=== PATIENT | female | born 1945 | race Caucasian/White ===

== ENCOUNTER 2017-04-08 19:54 | Emergency (ER) | payer OTHER ==
[~2017-04-08 19:54] MED LIST: ASPIRIN; ASPIRIN ADULT L81 M1 PO; BUTALBITAL; CAFFEINE; CITALOPRAM HYDR20 MG PO; COLACE100 MG; CRANBERRY500 MG PO; CRESTOR20 MG PO; CYCLOBENZAPRINE10 MG PO; CYMBALTA30 MG PO; DICYCLOMINE HCL10 MG PO; FLONASE AL50 MCG/ACT; HYZAAR1 TA1 PO; IBUPROFEN600 MG PO; IBUPROFEN800 MG PO; LEVOTHYROXINE25 MCG PO; LOPRESSOR50 MG PO; MAG6464 MG PO; NAPROSYN375 MG PO; NASAL DECONGES0.05 %; NYSTATIN100000 M2 TOP; OXYCONTIN CR15 MG PO; PROTONIX40 MG PO; RANITIDINE HCL150 MG PO; RESTORIL15 MG PO; TRAZODONE HCL50 MG PO; VENTOLIN HFA IN; ZANTAC 150 MAX150 MG PO; ZOFRAN ODT4 MG PO
--- NOTE | 2017-04-08 20:36 | DIAGNOSTIC IMAGING REPORT ---
PROCEDURE: XR CHEST 1 VIEW INDICATION: SHORTNESS OF BREATH TECHNIQUE: Portable AP view 08:19 p.m. COMPARISON: Chest x-ray 01/10/2016. FINDINGS: Lungs are clear. Heart and mediastinum are normal. Thorax is normal. No significant interval change IMPRESSION: 1. Negative chest.
--- NOTE | 2017-04-08 22:57 | ED NURSING NOTES ---
Clinical Report - Nurses [facility] [address] [place] [address] 04/08/2017 19:54 Patient: RADHA FERNANDEZ TRIAGE Triage time 19:52. Acuity: LEVEL 2. Chief Complaint: CHEST DISCOMFORT and SHORTNESS OF BREATH. Alert. No acute distress. SEPSIS SCREEN: Sepsis Screen. Negative (no infection suspected/documented). GATO COMA SCORE: Gato Coma Scale: 15- eyes open spontaneously (4); best verbal response- oriented x 4 (5); best motor response- obeys commands (6). --20:01 Maddi Santos R.N. 19:54 04/08/17. BP: 132/77. HR: 69. RR: 15. O2 saturation: 96%. Temp: 98.4 F. Pain level now 0/10. --20:01 Maddi Santos R.N. Weight: 100.2 kg stated. Height/Length: 63 inches Per Patient. BMI: 39.1. --19:57 Maddi Santos R.N. Medications Aspirin Oral (Tablet Chewable 81 mg) 1 tablet, daily. Cyclobenzaprine HCl Oral (Tablet 5 mg) 1 tablet, 3x a day. --20:03 Maddi Santos R.N. Cranberry Oral. --20:03 Maddi Santos R.N. Dicyclomine HCl Oral (Capsule 10 mg) 2 capsules, 2x a day. --20:04 Maddi Santos R.N. DULoxetine HCl Oral (Capsule Delayed Release Particles 30 mg) 3 capsules, daily. --20:04 Maddi Santos R.N. Flonase Nasal (Suspension 50 mcg/act), 2x a day. --20:04 Maddi Santos R.N. Hyzaar Oral (Tablet 50-12.5 mg) 1 tablet, daily. --20:05 Maddi Santos R.N. Ibuprofen Oral (Tablet 800 mg) 1 tablet, 3x a day. --20:05 Maddi Santos R.N. Ketoconazole External (Cream 2 %), daily. --20:06 Maddi Santos R.N. Levothyroxine Sodium Oral (Tablet 25 mcg) 1 tablet, daily. --20:06 Maddi Santos R.N. Lidocaine External 3% lotion. --20:06 Maddi Santos R.N. Loratadine Oral (Tablet 10 mg), daily. --20:07 Maddi Santos R.N. Magnesium Chloride Oral 64mg, daily. --20:07 Maddi Santos R.N. Metoprolol Tartrate Oral (Tablet 50 mg) 1 tablet (1.5 tablets q morning and 1 tablet q PM). --20:08 Maddi Santos R.N. Nitroglycerin Sublingual (Tablet Sublingual 0.4 mg), as needed. --20:08 Maddi Santos R.N. Nystatin External (Cream 943500 unit/gm). --20:08 Maddi Santos R.N. OxyCONTIN Oral (Tablet ER 12 Hour Abuse-Deterrent 15 mg), 2x a day as needed. --20:09 Maddi Santos R.N. Polyethylene Glycol 3350 Oral, BID. --20:09 Maddi Santos R.N. TraZODone HCl Oral (Tablet 50 mg) 2 tablets, at bedtime. --20:10 Maddi Santos R.N. Ventolin HFA Inhalation 2 puffs, 4x a day as needed. --20:10 Maddi Santos R.N. Allergies Codeine. Septra. --20:11 Maddi Santos R.N. History Arrived by EMS. Historian: patient. Primary physician (charissa). ( Pt presented to urgent care for shortness of breath x2 weeks and chest heaviness also for 2 weeks. she states the chest heaviness comes and goes and she also has some diaphoresis. Pt states this frequently happens to her, and she has to take PO nitro about twice per month for chest heaviness. She also c/o palpitations this morning. Pt was transported via EMS and given 1 asa and nitro x3 and is 0/10 pain upon arrival to ED.). Onset. (this morning). The patient has had difficulty breathing. Treatment HAND BUTTON SPLITTER: Took aspirin and NTG x3 sublingually. EMS treatment HAND BUTTON SPLITTER verbally communicated. Finger stick glucose performed (143). ASA 325 mg PO given by EMS. NITROGLYCERIN X3 SL given by EMS. BP: 135/80. HR: 76. O2 saturation: 95 % room air. Upon arrival patient awake. SOCIAL HX: Never smoker. No alcohol use or drug use. FALL RISK ASSESSMENT: Fall risk assessment completed. No fall risk identified. NUTRITIONAL RISK ASSESSMENT: The nutritional risk assessment revealed no deficiencies. FUNCTIONAL ASSESSMENT: Functional assessment: no impairments noted. LEARNING NEEDS ASSESSMENT: The learning needs assessment revealed no barriers. SKIN INTEGRITY ASSESSMENT: Skin integrity risk assessment completed. No skin integrity risk identified. --20:01 Maddi Santos R.N. ( asa from EMS at 1920). --20:12 Maddi Santos R.N. PROBLEMS: Myocardial Infarction. Acute Pain. GI Bleeding. Immunizations. UTI - Urinary Tract Infection. Back Pain. Fibromyalgia. Spinal Stenosis. Abnormal Liver Function Test. Viral Disease. Thrombocytopenia. TIA - Transient Ischemic Attack. Insomnia. Arthritis. Gastroesophageal Reflux. Thyroid Disease. Hyperlipidemia. Chronic Back Pain. Atrial Fibrillation. Chest Pain. Hypertension. Prior Injury, Same Area. Contusion. Heart Disease. Tetanus Status. LNMP - Last Normal Menstrual Period. --20:11 Maddi Santos R.N. Interventions ID band on patient. To treatment room. --20:01 Maddi Santos R.N. 19:50 04/08/2017 Site #1 started prior to arrival by EMS via IV in the left forearm with an 20g angiocath, with aseptic technique and good blood return; one attempt. Saline lock flushed with 10 mL saline. --20:01 Maddi Santos R.N. PHYSICAL ASSESSMENT 20:02 04/08/17. To room via stretcher. GENERAL / NEURO / PSYCH: Alert. Oriented X 4. RESPIRATORY: No respiratory distress. Respirations not labored. CVS: Capillary refill less than 2 seconds. GI / : Abdomen soft. EXTREMITIES: No lower extremity edema. SKIN: Skin is warm and dry. --20:02 Maddi Santos R.N. NURSING PROGRESS NOTES 20:02 04/08/17. The plan of care for this patient has been created. bus driver/monitor, pulse oximeter and NIBP monitor placed on patient. Patient gowned. Head of bed elevated. Call light placed in reach. Side rails up x 2. Bed placed in lowest position. Brakes of bed on. Patient ready for evaluation- chart flagged. --20:02 Maddi Santos R.N. EKG time: (1952). EKG was ordered, performed by a tech and shown to the ED physician. --20:14 Román Dye, ER [employer] Patient ID band checked for patient name and birthdate: patient confirmed. Blood samples drawn from the right forearm with syringe and 21g butterfly by tech per protocol: rainbow set. --20:53 Román Dye, ER [employer] Assisted patient to bedside commode; tolerated well. --21:10 Maddi Santos R.N. Patient ID band checked for patient name and birthdate: patient confirmed. Instructions provided to collect clean catch urine and patient verbalized understanding. Clean catch urine collected with return of yellow-colored clear urine; odor is normal; sample sent to lab for urinalysis and culture. Specimen labeled in the presence of the patient. --21:17 Maddi Santos R.N. 21:17 04/08/17. BP: 139/90. HR: 67. RR: 18. O2 saturation: 96% on room air. Pain level now 0/10. --21:17 Maddi Santos R.N. 22:55 04/08/2017 Heparin IVP 4000 unit given over 1 minute(s) via site #1. Allergies verified and confirmed 5 rights. IV patency established. IV site checked: no pain, redness, or swelling. IV flushed thoroughly pre- and post-medication administration. IVP given by RN. --23:05 Jeaneth Multani R.N. 23:01 04/08/2017 Morphine IVP 4 mg given over 2 minute(s) via site #1. Allergies verified, confirmed 5 rights and sedative warning given to the patient. IV patency established. IV site checked: no pain, redness, or swelling. IV flushed thoroughly pre- and post-medication administration. IVP given by RN. --23:06 Cecilia Barrios R.N. 22:30 04/08/17. BP: 115/75 taken on the left arm, while lying. HR: 61 (regular). RR: 18. O2 saturation: 96%. Temp: deferred. Pain level now: 10/06. --23:08 Jeaneth Multani R.N. The patient reports no complaints and she is calm and resting quietly. RESPIRATORY: No respiratory distress. Breath sounds normal. SKIN: Skin is warm and dry. Skin color within normal limits. Two patient identifiers checked. Call light placed in reach. Side rails up x 2. Bed placed in lowest position. Brakes of bed on. --23:08 Jeaneth Multani R.N. Care transferred and report received (received report from DR. Prado, Assumed care of pt,). --23:08 Jeaneth Multani R.N. 23:22 04/08/2017 Atorvastatin PO Tablets 10 mg given. Allergies verified and confirmed 5 rights. --23:29 Jeaneth Multani R.N. The patient reports no complaints. ( pt up to BSC c/o slight CP on transfer back to bed. no rhythm changes.). RESPIRATORY: No respiratory distress. Breath sounds normal. CVS: The patient reports central chest pain is still present but improving and currently mild in severity and described as stabbing. SKIN: Skin is warm and dry. Skin color within normal limits. Two patient identifiers checked. Call light placed in reach. Side rails up x 1. Bed placed in lowest position. Brakes of bed on. --23:31 Jeaneth Multani R.N. 23:00 04/08/17. BP: 160/73 taken on the right arm, while lying. HR: 66 (regular and normal rate). RR: 20 (regular and unlabored). O2 saturation: 97% on room air. Temp: deferred. Pain level now: 12/04. --23:31 Jeaneth Multani R.N. DISPOSITION / DISCHARGE 00:07 04/09/17. BP: 137/90. HR: 84 (regular and normal rate). RR: 18. O2 saturation: 97%. Temp: deferred. Pain level now: 11/06. --00:13 Jeaneth Multani R.N. Departure time: 0010. Transferred to [facility]. Summary of care provided to EMS via paper. Transported via ambulance by nurse and EMS with monitor, IV and emergency medications. Report was given to a nurse via a phone call. Report included patient's care, treatment, medications, reviewed medication reconcilliation, and condition (including any recent changes or anticipated changes). All questions were answered. Report was acknowledged and care was transferred. (Spencer Uribe @ [place] [id number]). Patient's personal items; items were transported with the patient. --00:13 Jeaneth Multani R.N. 00:04/09/2017 Site #[address] upon transfer; patent, no pain and no signs of infection or infiltration. Good blood return present. --00:14 Jeaneth Multani R.N. 00:10 04/09/2017 IV Saline Lock Drip IV Continued: upon transfer at the rate of 0 mL/hr. 0 mL remaining. IV patency established. IV site checked: no pain, redness, or swelling. IV flushed thoroughly. --00:14 Jeaneth Multani R.N. Locked/Released at 04/09/2017 0:17 by Jeaneth Multani R.N.
--- NOTE | 2017-04-08 22:57 | ED CLINICAL REPORT ---
Clinical Report - Physicians/Mid Levels Located Within [facility] [address] [place] [address] 04/08/2017 19:54 Patient: RADHA FERNANDEZ Time Seen: 20:04. Arrived- By ambulance. Historian- patient and EMS personnel. HISTORY OF PRESENT ILLNESS Chief Complaint: CHEST PAIN. It is described as pressure and it is described as located in the left chest area and radiating to the left axilla and arm. This started today at about 11:30 AM and is still present. It was abrupt in onset and has been constant and waxing/waning. Onset during moderate exertion; bowel movement. At its maximum, severity described as 8 / 10. When seen in the E.D., severity described as 2 / 10. Modifying factors- worsened by cough. Relieved by nitroglycerin (two, given by paramedics). Relief was partial. The patient has had mild difficulty breathing and nausea and has experienced diaphoresis. No vomiting. Similar symptoms previously: Many times. Diagnosis: KS. Recent medical care: Not recently seen/assessed. REVIEW OF SYSTEMS No chills, fever, calf pain, black stools or bloody stools. No diarrhea. She has experienced sweats and had difficulty breathing, palpitations, constipation and hesitancy. She has had mildly altered mental status: confused. (for 2 weeks). She says that she had a stress test at [facility] about 7 months ago - "I did very well". All systems otherwise negative, except as recorded above. PAST HISTORY PCP - [facility] [place] [place]. Medications: Ventolin HFA Inhalation 2 puffs, 4x a day as needed. TraZODone HCl Oral (Tablet 50 mg) 2 tablets, at bedtime. Polyethylene Glycol 3350 Oral, BID. OxyCONTIN Oral (Tablet ER 12 Hour Abuse-Deterrent 15 mg), 2x a day as needed. Nystatin External (Cream 601471 unit/gm). Nitroglycerin Sublingual (Tablet Sublingual 0.4 mg), as needed. Metoprolol Tartrate Oral (Tablet 50 mg) 1 tablet (1.5 tablets q morning and 1 tablet q PM). Magnesium Chloride Oral 64mg, daily. Loratadine Oral (Tablet 10 mg), daily. Lidocaine External 3% lotion. Levothyroxine Sodium Oral (Tablet 25 mcg) 1 tablet, daily. Ketoconazole External (Cream 2 %), daily. Ibuprofen Oral (Tablet 800 mg) 1 tablet, 3x a day. Hyzaar Oral (Tablet 50-12.5 mg) 1 tablet, daily. Flonase Nasal (Suspension 50 mcg/act), 2x a day. DULoxetine HCl Oral (Capsule Delayed Release Particles 30 mg) 3 capsules, daily. Dicyclomine HCl Oral (Capsule 10 mg) 2 capsules, 2x a day. Cranberry Oral. Aspirin Oral (Tablet Chewable 81 mg) 1 tablet, daily. Cyclobenzaprine HCl Oral (Tablet 5 mg) 1 tablet, 3x a day. Allergies: Codeine. Septra. SOCIAL HISTORY Never smoker. No alcohol use or drug use. Resides in a house. She lives with a family member. FAMILY HISTORY No history of aortic aneurysm or dissection. Diabetes in first-degree relative (mother); heart disease in first-degree relative (mother); cancer in first-degree relative (sibling). ADDITIONAL NOTES The nursing notes have been reviewed. PHYSICAL EXAM Vital Signs: 04/08/2017 19:54 BP: 132/77. HR: 69. RR: 15. O2 saturation: 96%. Temp: 98.4 F. Have been reviewed. Appearance: Alert. She is morbidly obese. Eyes: Pupils equal, round and reactive to light. ENT: Pharynx normal. Neck: Normal inspection. CVS: Normal heart rate and rhythm. Heart sounds normal. Respiratory: No respiratory distress. Breath sounds normal. Abdomen: Soft and nontender. Bowel sounds normal. No organomegaly. No mass. Obese. Back: Normal external inspection. No CVA tenderness. Skin: Skin warm and dry. Normal skin color. Normal skin turgor. Extremities: Extremities exhibit normal ROM. No calf tenderness. No lower extremity edema. LABS, X-RAYS, AND EKG EKG: No acute process. Rate: 68. Left anterior fascicular block. LVH. Changes present when compared to prior EKG. (09 Jul 2016). The study has been independently viewed by me. Chest X-ray: No acute disease. The X-rays were independently viewed by me. Laboratory Tests: UA-Culture if indicated: (YOLETTE: 04/08/2017 21:15) ( [facility] 04/08/2017 21:38) Final results Test Result Flag Units (Reference) URINE COLOR YELLOW URINE APPEARANCE CLEAR URINE GLUCOSE NEGATIVE (NEGATIVE) URINE BILIRUBIN NEGATIVE (NEGATIVE) URINE KETONE NEGATIVE (NEGATIVE) URINE SPECIFIC GRAVITY 1.020 (1.010-1.030) URINE PH 6.5 (5.0-8.0) URINE PROTEIN NEGATIVE (NEGATIVE) URINE UROBILINOGEN 0.2 EU/dL (0.2-1.0) URINE NITRITE NEGATIVE (NEGATIVE) URINE BLOOD NEGATIVE (NEGATIVE) URINE LEUK ESTERASE NEGATIVE (NEGATIVE) URINE RBC 0-1 rbc/hpf (0-1) URINE WBC 1-3 wbc/hpf (0-1) URINE EPITHELIAL CELLS RARE EPI/hpf (0-5) URINE BACTERIA TRACE (<1+) (NONE SEEN) URINE COMMENT CULT NOT INDICATED URINE CULTURES ARE SET-UP BASED ON THE FOLLOWING CRITERIA:POSITIVE NITRITEPOSITIVE LEUKOCYTE ESTERASEGREATER THAN 10 WHITE BLOOD CELLSMODERATE (2+) OR GREATER BACTERIA CBC w Diff: (YOLETTE: 04/08/2017 20:50) ( [facility] 04/08/2017 21:26) Final results Test Result Flag Units (Reference) WHITE BLOOD COUNT 6.1 K/uL (4.5-11.5) RED BLOOD COUNT 4.57 M/uL (4.00-5.20) HEMOGLOBIN 14.1 gm/dL (12.0-16.0) HEMATOCRIT 41.5 % (36.0-46.0) MEAN CELL VOLUME 91 fL (80-100) MEAN CORPUSCULAR HGB 31 pg (26-34) MEAN CORPUSCULAR HGB CONC 34 g/dL (31-37) RED CELL DISTRIBUTION WIDTH 12.5 % (11.6-14.8) PLATELET COUNT 123 L K/uL (150-400) NEUTROPHIL % 58.4 % (50-75) LYMPH % 29.5 % (25-40) MONO % 11.0 % (3-14) EOSINOPHIL % 1.0 % (0-4) BASOPHIL % 0.1 % (0-2) PT with INR: (YOLETTE: 04/08/2017 20:50) ( [facility] 04/08/2017 21:27) Final results Test Result Flag Units (Reference) INR 1.0 (0.8-1.2) Low Intensity Therapy: INR 1.5-2.0 PT range 18.5-23.1Mod.Intensity Therapy: INR 2.0-3.0 PT range 23.1-31.5High Intensity Therapy: INR 2.5-3.5 PT range 27.4-35.5High Intensity Therapy 2: INR 3.0-4.0 PT range 31.5-39.3 APTT 24 SECONDS (24-34) D-DIMER QUANTITATIVE < 0.27 L ug/mLFEU (0.27-0.52) The primary value of this quantitative assay relates toits negative predictive value (i.e. exclusion) of pulmonaryembolism/deep vein thrombosis/DIC.Elevated levels of d-dimer may also occur with:, age, cancer, inflammation, liver disease,post-op, infection, hematoma, coronary disease, peripheralarteriopathy, bleeding disorders and thrombolytic treatment.Results should be correlated with other clinical andradiological data.Testing Methodology: Latex Immunoassay BNP: (YOLETTE: 04/08/2017 20:50) ( [facility] 04/08/2017 21:42) Final results Test Result Flag Units (Reference) B-TYPE NATRIURETIC PEPTIDE 53.2 pg/ml (5-100) CMP: (YOLETTE: 04/08/2017 20:50) ( [facility] 04/08/2017 21:44) Final results Test Result Flag Units (Reference) GLUCOSE 118 H mg/dL (70-110) BUN 17 mg/dL (7-18) CREATININE 1.0 mg/dL (0.6-1.3) Estimated GFR 57.76 mL/min Estimated GFR- >60 mL/min Note: Persistent reduction over 3 months in eGFR<60 mL/min/1.73 m2 defines CKD. Patients with eGFR values>=60 mL/min/1.73 m2 may also have CKD if evidence ofpersistent proteinuria. Additional information may be foundat www.kidney.org. SODIUM 140 mmol/L (136-145) POTASSIUM 3.7 mmol/L (3.5-5.1) CHLORIDE 104 mmol/L (98-107) CARBON DIOXIDE 28 mmol/L (21-32) CALCIUM 8.7 mg/dL (8.5-10.1) TOTAL PROTEIN 7.2 g/dL (6.4-8.2) ALBUMIN 3.6 g/dL (3.3-5.0) BILIRUBIN, TOTAL 0.6 mg/dL (0.0-1.0) ALKALINE PHOSPHATASE 82 U/L (46-116) AST (SGOT) 63 H U/L (15-37) ALT (SGPT) 109 H U/L (12-78) LIPASE 232 U/L (73-393) AMYLASE 48 U/L (25-115) CPK 274 H U/L (24-260) TROPONIN I <0.05 ng/mL (0.00-1.5) TROPONIN REFERENCE RANGE:<0.1 NEGATIVE0.1-1.5 INDETERMINANT>1.5 POSITIVE CK-MB 4.3 H ng/mL (0.5-3.2) %CKMB 1.6 % (0.0-4.0) . PROGRESS AND PROCEDURES Course of Care: 21:14 04/08/17. Case was discussed with Dr. Prado at change of shift. Reviewed the patient's history and physical examination findings and results for EKG and chest x-ray. He will follow up on the results of her labs and will arrange an appropriate disposition for her. Additionally, results of her stress test from April 2016 at [facility] reviewed by me and him and echocardiogram as well. - MW Reviewed records: Stress test 05/19/16: abnl but low risk graded stress w/ brief episode of A fib RVR. No evidence of ischemia or prior MINl wall motion and LV fxn. Echo 05/19/16: Mild LV hypertrophy. EF 70-75%. Critical care performed (35 minutes). Time is exclusive of separately billable procedures. Time includes: direct patient care, patient reassessment, interpretation of data (laboratory data, pulse oximetry, chest xrays and prior electrocardiograms) and medical consultation. The patient required critical care due to the acute impairment of vital organ systems (cardiovascular) and a high probability of imminent deterioration. Multiple urgent interventions were required to prevent sudden deterioration. Consult obtained from cardiology. call returned 22:40 Dr. Soria at [facility]. Concerned for ACS, requested Heparin Bolus and gtt and statin and ASA if not already done(325 given by EMS) and to transfer the pt. Patient/family counseled. Old medical records reviewed. Disposition: Transferred to [facility]. Condition: stable. CLINICAL IMPRESSION Acute coronary syndrome: stable angina .12 lead EKG performed. No STEMI (ST Elevation Myocardial Infarction). INSTRUCTIONS Follow-up: Blood pressure screening was not performed during this visit because the patient has an active diagnosis of hypertension. (Electronically signed by Paco Prado Dr. 04/09/2017 5:36)
--- NOTE | 2017-04-08 22:57 | ED NURSING NOTES ---
Clinical Report - Nurses [facility] [address] [place] [address] 04/08/2017 19:54 Patient: RADHA FERNANDEZ TRIAGE Triage time 19:52. Acuity: LEVEL 2. Chief Complaint: CHEST DISCOMFORT and SHORTNESS OF BREATH. Alert. No acute distress. SEPSIS SCREEN: Sepsis Screen. Negative (no infection suspected/documented). GATO COMA SCORE: Gato Coma Scale: 15- eyes open spontaneously (4); best verbal response- oriented x 4 (5); best motor response- obeys commands (6). --20:01 Maddi Santos R.N. 19:54 04/08/17. BP: 132/77. HR: 69. RR: 15. O2 saturation: 96%. Temp: 98.4 F. Pain level now 0/10. --20:01 Maddi Santos R.N. Weight: 100.2 kg stated. Height/Length: 63 inches Per Patient. BMI: 39.1. --19:57 Maddi Santos R.N. Medications Aspirin Oral (Tablet Chewable 81 mg) 1 tablet, daily. Cyclobenzaprine HCl Oral (Tablet 5 mg) 1 tablet, 3x a day. --20:03 Maddi Santos R.N. Cranberry Oral. --20:03 Maddi Santos R.N. Dicyclomine HCl Oral (Capsule 10 mg) 2 capsules, 2x a day. --20:04 Maddi Santos R.N. DULoxetine HCl Oral (Capsule Delayed Release Particles 30 mg) 3 capsules, daily. --20:04 Maddi Santos R.N. Flonase Nasal (Suspension 50 mcg/act), 2x a day. --20:04 Maddi Santos R.N. Hyzaar Oral (Tablet 50-12.5 mg) 1 tablet, daily. --20:05 Maddi Santos R.N. Ibuprofen Oral (Tablet 800 mg) 1 tablet, 3x a day. --20:05 Maddi Santos R.N. Ketoconazole External (Cream 2 %), daily. --20:06 Maddi Santos R.N. Levothyroxine Sodium Oral (Tablet 25 mcg) 1 tablet, daily. --20:06 Maddi Santos R.N. Lidocaine External 3% lotion. --20:06 Maddi Santos R.N. Loratadine Oral (Tablet 10 mg), daily. --20:07 Maddi Santos R.N. Magnesium Chloride Oral 64mg, daily. --20:07 Maddi Santos R.N. Metoprolol Tartrate Oral (Tablet 50 mg) 1 tablet (1.5 tablets q morning and 1 tablet q PM). --20:08 Maddi Santos R.N. Nitroglycerin Sublingual (Tablet Sublingual 0.4 mg), as needed. --20:08 Maddi Santos R.N. Nystatin External (Cream 938592 unit/gm). --20:08 Maddi Santos R.N. OxyCONTIN Oral (Tablet ER 12 Hour Abuse-Deterrent 15 mg), 2x a day as needed. --20:09 Maddi Santos R.N. Polyethylene Glycol 3350 Oral, BID. --20:09 Maddi Santos R.N. TraZODone HCl Oral (Tablet 50 mg) 2 tablets, at bedtime. --20:10 Maddi Santos R.N. Ventolin HFA Inhalation 2 puffs, 4x a day as needed. --20:10 Maddi Santos R.N. Allergies Codeine. Septra. --20:11 Maddi Santos R.N. History Arrived by EMS. Historian: patient. Primary physician (charissa). ( Pt presented to urgent care for shortness of breath x2 weeks and chest heaviness also for 2 weeks. she states the chest heaviness comes and goes and she also has some diaphoresis. Pt states this frequently happens to her, and she has to take PO nitro about twice per month for chest heaviness. She also c/o palpitations this morning. Pt was transported via EMS and given 1 asa and nitro x3 and is 0/10 pain upon arrival to ED.). Onset. (this morning). The patient has had difficulty breathing. Treatment SCALLOP BINDER: Took aspirin and NTG x3 sublingually. EMS treatment SCALLOP BINDER verbally communicated. Finger stick glucose performed (143). ASA 325 mg PO given by EMS. NITROGLYCERIN X3 SL given by EMS. BP: 135/80. HR: 76. O2 saturation: 95 % room air. Upon arrival patient awake. SOCIAL HX: Never smoker. No alcohol use or drug use. FALL RISK ASSESSMENT: Fall risk assessment completed. No fall risk identified. NUTRITIONAL RISK ASSESSMENT: The nutritional risk assessment revealed no deficiencies. FUNCTIONAL ASSESSMENT: Functional assessment: no impairments noted. LEARNING NEEDS ASSESSMENT: The learning needs assessment revealed no barriers. SKIN INTEGRITY ASSESSMENT: Skin integrity risk assessment completed. No skin integrity risk identified. --20:01 Maddi Santos R.N. ( asa from EMS at 1920). --20:12 Maddi Santos R.N. PROBLEMS: Myocardial Infarction. Acute Pain. GI Bleeding. Immunizations. UTI - Urinary Tract Infection. Back Pain. Fibromyalgia. Spinal Stenosis. Abnormal Liver Function Test. Viral Disease. Thrombocytopenia. TIA - Transient Ischemic Attack. Insomnia. Arthritis. Gastroesophageal Reflux. Thyroid Disease. Hyperlipidemia. Chronic Back Pain. Atrial Fibrillation. Chest Pain. Hypertension. Prior Injury, Same Area. Contusion. Heart Disease. Tetanus Status. LNMP - Last Normal Menstrual Period. --20:11 Maddi Santos R.N. Interventions ID band on patient. To treatment room. --20:01 Maddi Santos R.N. 19:50 04/08/2017 Site #1 started prior to arrival by EMS via IV in the left forearm with an 20g angiocath, with aseptic technique and good blood return; one attempt. Saline lock flushed with 10 mL saline. --20:01 Maddi Santos R.N. PHYSICAL ASSESSMENT 20:02 04/08/17. To room via stretcher. GENERAL / NEURO / PSYCH: Alert. Oriented X 4. RESPIRATORY: No respiratory distress. Respirations not labored. CVS: Capillary refill less than 2 seconds. GI / : Abdomen soft. EXTREMITIES: No lower extremity edema. SKIN: Skin is warm and dry. --20:02 Maddi Santos R.N. NURSING PROGRESS NOTES 20:02 04/08/17. The plan of care for this patient has been created. continuous mining operator, pulse oximeter and NIBP monitor placed on patient. Patient gowned. Head of bed elevated. Call light placed in reach. Side rails up x 2. Bed placed in lowest position. Brakes of bed on. Patient ready for evaluation- chart flagged. --20:02 Maddi Santos R.N. EKG time: (1952). EKG was ordered, performed by a tech and shown to the ED physician. --20:14 Román Dye, ER Market Manager Patient ID band checked for patient name and birthdate: patient confirmed. Blood samples drawn from the right forearm with syringe and 21g butterfly by tech per protocol: rainbow set. --20:53 Román Dye, ER Market Manager Assisted patient to bedside commode; tolerated well. --21:10 Maddi Santos R.N. Patient ID band checked for patient name and birthdate: patient confirmed. Instructions provided to collect clean catch urine and patient verbalized understanding. Clean catch urine collected with return of yellow-colored clear urine; odor is normal; sample sent to lab for urinalysis and culture. Specimen labeled in the presence of the patient. --21:17 Maddi Santos R.N. 21:17 04/08/17. BP: 139/90. HR: 67. RR: 18. O2 saturation: 96% on room air. Pain level now 0/10. --21:17 Maddi Santos R.N. 22:55 04/08/2017 Heparin IVP 4000 unit given over 1 minute(s) via site #1. Allergies verified and confirmed 5 rights. IV patency established. IV site checked: no pain, redness, or swelling. IV flushed thoroughly pre- and post-medication administration. IVP given by RN. --23:05 Jeaneth Multani R.N. 23:01 04/08/2017 Morphine IVP 4 mg given over 2 minute(s) via site #1. Allergies verified, confirmed 5 rights and sedative warning given to the patient. IV patency established. IV site checked: no pain, redness, or swelling. IV flushed thoroughly pre- and post-medication administration. IVP given by RN. --23:06 Cecilia Barrios R.N. 22:30 04/08/17. BP: 115/75 taken on the left arm, while lying. HR: 61 (regular). RR: 18. O2 saturation: 96%. Temp: deferred. Pain level now: 10/06. --23:08 Jeaneth Multani R.N. The patient reports no complaints and she is calm and resting quietly. RESPIRATORY: No respiratory distress. Breath sounds normal. SKIN: Skin is warm and dry. Skin color within normal limits. Two patient identifiers checked. Call light placed in reach. Side rails up x 2. Bed placed in lowest position. Brakes of bed on. --23:08 Jeaneth Multani R.N. Care transferred and report received (received report from DR. Prado, Assumed care of pt,). --23:08 Jeaneth Multani R.N. 23:22 04/08/2017 Atorvastatin PO Tablets 10 mg given. Allergies verified and confirmed 5 rights. --23:29 Jeaneth Multani R.N. The patient reports no complaints. ( pt up to BSC c/o slight CP on transfer back to bed. no rhythm changes.). RESPIRATORY: No respiratory distress. Breath sounds normal. CVS: The patient reports central chest pain is still present but improving and currently mild in severity and described as stabbing. SKIN: Skin is warm and dry. Skin color within normal limits. Two patient identifiers checked. Call light placed in reach. Side rails up x 1. Bed placed in lowest position. Brakes of bed on. --23:31 Jeaneth Multani R.N. 23:00 04/08/17. BP: 160/73 taken on the right arm, while lying. HR: 66 (regular and normal rate). RR: 20 (regular and unlabored). O2 saturation: 97% on room air. Temp: deferred. Pain level now: 12/04. --23:31 Jeaneth Multani R.N. DISPOSITION / DISCHARGE 00:07 04/09/17. BP: 137/90. HR: 84 (regular and normal rate). RR: 18. O2 saturation: 97%. Temp: deferred. Pain level now: 11/06. --00:13 Jeaneth Multani R.N. Departure time: 0010. Transferred to [facility]. Summary of care provided to EMS via paper. Transported via ambulance by nurse and EMS with monitor, IV and emergency medications. Report was given to a nurse via a phone call. Report included patient's care, treatment, medications, reviewed medication reconcilliation, and condition (including any recent changes or anticipated changes). All questions were answered. Report was acknowledged and care was transferred. (Spencer Uribe @ [place] [id number]). Patient's personal items; items were transported with the patient. --00:13 Jeaneth Multani R.N. 00:04/09/2017 Site #[address] upon transfer; patent, no pain and no signs of infection or infiltration. Good blood return present. --00:14 Jeaneth Multani R.N. 00:10 04/09/2017 IV Saline Lock Drip IV Continued: upon transfer at the rate of 0 mL/hr. 0 mL remaining. IV patency established. IV site checked: no pain, redness, or swelling. IV flushed thoroughly. --00:14 Jeaneth Multani R.N. Locked/Released at 04/09/2017 0:17 by Jeaneth Multani R.N.
--- NOTE | 2017-04-08 22:57 | ED ORDER SUMMARY ---
..... Patient: RADHA FERNANDEZ OrderSheet [facility] VisitID: [id number] [address] [place] [address] 71y, F Registration Date/Time: 04/08/2017 ORDER SHEET Weight: 100.2 kg (stated) Allergies: Codeine, Septra GENERAL ORDERS: Chest 1V Urgent (20:04 04/08/2017 Shira JACOBSON) (20:15 CHagerty ER Switch Operator) Quartz Orientator (Continuous) (20:04/08/2017 Shira JACOBSON) (20:10 CHagerty ER Switch Operator) CBC w Diff Urgent (20:04/08/2017 Shira JACOBSON) (Ack 20:27 Rai) (20:52 CHagerty ER Switch Operator) CMP Urgent (20:04/08/2017 Shira JACOBSON) (Ack 20:27 Rai) (20:52 CHagerty ER Switch Operator) UA-Culture if indicated Urgent (20:04/08/2017 Shira JACOBSON) (Ack 20:27 Rai) (21:16 KWilliams R.N.) PT with INR Urgent (20:04/08/2017 Shira JACOBSON) (Ack 20:27 Rai) (20:51 CHagerty ER Switch Operator) PTT Urgent (20:04/08/2017 Shira JACOBSON) (Ack 20:27 Rai) (20:51 CHagerty ER Switch Operator) D-Dimer Urgent (20:04/08/2017 Shira JACOBSON) (Ack 20:27 Rai) (20:51 CHagerty ER Switch Operator) Amylase Urgent (20:04/08/2017 Shira JACOBSON) (Ack 20:27 Rai) (20:51 CHagerty ER Switch Operator) Lipase Urgent (20:04/08/2017 Shira JACOBSON) (Ack 20:27 Rai) (20:51 CHagerty ER Switch Operator) CPK Urgent (20:04/08/2017 Shira JACOBSON) (Ack 20:27 Rai) (20:51 CHagerty ER Switch Operator) Troponin-I Urgent (20:04/08/2017 Shira JACOBSON) (Ack 20:27 Rai) [facility] BNP Urgent (20:05 04/08/2017 Shira JACOBSON) (Ack 20:27 Rai) (20:51 [facility] Oxygen (2 L/min) (NC) (20:05 04/08/2017 Shira JACOBSON) (20:10 [facility] Pulse oximeter (20:05 04/08/2017 Shira JACOBSON) (20:10 [facility] EKG - ER Stat (20:05 04/08/2017 Shira JACOBSON) (20:10 [facility]) MEDICATION ORDERS: Aspirin PO 325 mg (NOW) (20:05 04/08/2017 Shira JACOBSON) (Cancelled: Duplicate Order- given by EMS20:18 Chance R.N.) Atorvastatin PO 10 mg (NOW) (22:47 04/08/2017 Chadwick Barrow) (Ack 22:50 Theresa R.N.) (23:29 Theresa R.N.) IV FLUIDS: IV Saline Lock (20:05 04/08/2017 Shira JACOBSON) (20:18 Chance R.N.) Heparin IV : initial bolus 4000, then 12 units/kg/hr for X1 (HIGH ALERT MEDICATION, NOW) (22:48 04/08/2017 Chadwick Barrow) (Ack 22:50 Theresa R.N.) (23:05 Theresa R.N.) Morphine IV 4 mg (HIGH ALERT MEDICATION, NOW) (22:58 04/08/2017 Chadwick Barrow) (23:06 Clement R.N.) ORDER SHEET NOTES: [Electronically signed by Jeaneth Multani R.N. (00:17 04/09/2017)] [Electronically signed by Paco Prado Dr. (05:36 04/09/2017)] [Electronically locked/signed by Jeaneth Multani R.N. (00:17 04/09/2017)]
--- NOTE | 2017-04-08 22:57 | ED CLINICAL REPORT ---
Clinical Report - Physicians/Mid Levels [facility] [address] [place] [address] 04/08/2017 19:54 Patient: RADHA FERNANDEZ Time Seen: 20:04. Arrived- By ambulance. Historian- patient and EMS personnel. HISTORY OF PRESENT ILLNESS Chief Complaint: CHEST PAIN. It is described as pressure and it is described as located in the left chest area and radiating to the left axilla and arm. This started today at about 11:30 AM and is still present. It was abrupt in onset and has been constant and waxing/waning. Onset during moderate exertion; bowel movement. At its maximum, severity described as 8 / 10. When seen in the E.D., severity described as 2 / 10. Modifying factors- worsened by cough. Relieved by nitroglycerin (two, given by paramedics). Relief was partial. The patient has had mild difficulty breathing and nausea and has experienced diaphoresis. No vomiting. Similar symptoms previously: Many times. Diagnosis: IL. Recent medical care: Not recently seen/assessed. REVIEW OF SYSTEMS No chills, fever, calf pain, black stools or bloody stools. No diarrhea. She has experienced sweats and had difficulty breathing, palpitations, constipation and hesitancy. She has had mildly altered mental status: confused. (for 2 weeks). She says that she had a stress test at [facility] about 7 months ago - "I did very well". All systems otherwise negative, except as recorded above. PAST HISTORY PCP - [facility] [place]. Medications: Ventolin HFA Inhalation 2 puffs, 4x a day as needed. TraZODone HCl Oral (Tablet 50 mg) 2 tablets, at bedtime. Polyethylene Glycol 3350 Oral, BID. OxyCONTIN Oral (Tablet ER 12 Hour Abuse-Deterrent 15 mg), 2x a day as needed. Nystatin External (Cream 738689 unit/gm). Nitroglycerin Sublingual (Tablet Sublingual 0.4 mg), as needed. Metoprolol Tartrate Oral (Tablet 50 mg) 1 tablet (1.5 tablets q morning and 1 tablet q PM). Magnesium Chloride Oral 64mg, daily. Loratadine Oral (Tablet 10 mg), daily. Lidocaine External 3% lotion. Levothyroxine Sodium Oral (Tablet 25 mcg) 1 tablet, daily. Ketoconazole External (Cream 2 %), daily. Ibuprofen Oral (Tablet 800 mg) 1 tablet, 3x a day. Hyzaar Oral (Tablet 50-12.5 mg) 1 tablet, daily. Flonase Nasal (Suspension 50 mcg/act), 2x a day. DULoxetine HCl Oral (Capsule Delayed Release Particles 30 mg) 3 capsules, daily. Dicyclomine HCl Oral (Capsule 10 mg) 2 capsules, 2x a day. Cranberry Oral. Aspirin Oral (Tablet Chewable 81 mg) 1 tablet, daily. Cyclobenzaprine HCl Oral (Tablet 5 mg) 1 tablet, 3x a day. Allergies: Codeine. Septra. SOCIAL HISTORY Never smoker. No alcohol use or drug use. Resides in a house. She lives with a family member. FAMILY HISTORY No history of aortic aneurysm or dissection. Diabetes in first-degree relative (mother); heart disease in first-degree relative (mother); cancer in first-degree relative (sibling). ADDITIONAL NOTES The nursing notes have been reviewed. PHYSICAL EXAM Vital Signs: 04/08/2017 19:54 BP: 132/77. HR: 69. RR: 15. O2 saturation: 96%. Temp: 98.4 F. Have been reviewed. Appearance: Alert. She is morbidly obese. Eyes: Pupils equal, round and reactive to light. ENT: Pharynx normal. Neck: Normal inspection. CVS: Normal heart rate and rhythm. Heart sounds normal. Respiratory: No respiratory distress. Breath sounds normal. Abdomen: Soft and nontender. Bowel sounds normal. No organomegaly. No mass. Obese. Back: Normal external inspection. No CVA tenderness. Skin: Skin warm and dry. Normal skin color. Normal skin turgor. Extremities: Extremities exhibit normal ROM. No calf tenderness. No lower extremity edema. LABS, X-RAYS, AND EKG EKG: No acute process. Rate: 68. Left anterior fascicular block. LVH. Changes present when compared to prior EKG. (09 Jul 2016). The study has been independently viewed by me. Chest X-ray: No acute disease. The X-rays were independently viewed by me. Laboratory Tests: UA-Culture if indicated: (YOLETTE: 04/08/2017 21:15) ( [facility] [place] 04/08/2017 21:38) Final results Test Result Flag Units (Reference) URINE COLOR YELLOW URINE APPEARANCE CLEAR URINE GLUCOSE NEGATIVE (NEGATIVE) URINE BILIRUBIN NEGATIVE (NEGATIVE) URINE KETONE NEGATIVE (NEGATIVE) URINE SPECIFIC GRAVITY 1.020 (1.010-1.030) URINE PH 6.5 (5.0-8.0) URINE PROTEIN NEGATIVE (NEGATIVE) URINE UROBILINOGEN 0.2 EU/dL (0.2-1.0) URINE NITRITE NEGATIVE (NEGATIVE) URINE BLOOD NEGATIVE (NEGATIVE) URINE LEUK ESTERASE NEGATIVE (NEGATIVE) URINE RBC 0-1 rbc/hpf (0-1) URINE WBC 1-3 wbc/hpf (0-1) URINE EPITHELIAL CELLS RARE EPI/hpf (0-5) URINE BACTERIA TRACE (<1+) (NONE SEEN) URINE COMMENT CULT NOT INDICATED URINE CULTURES ARE SET-UP BASED ON THE FOLLOWING CRITERIA:POSITIVE NITRITEPOSITIVE LEUKOCYTE ESTERASEGREATER THAN 10 WHITE BLOOD CELLSMODERATE (2+) OR GREATER BACTERIA CBC w Diff: (YOLETTE: 04/08/2017 20:50) ( [facility] [place] 04/08/2017 21:26) Final results Test Result Flag Units (Reference) WHITE BLOOD COUNT 6.1 K/uL (4.5-11.5) RED BLOOD COUNT 4.57 M/uL (4.00-5.20) HEMOGLOBIN 14.1 gm/dL (12.0-16.0) HEMATOCRIT 41.5 % (36.0-46.0) MEAN CELL VOLUME 91 fL (80-100) MEAN CORPUSCULAR HGB 31 pg (26-34) MEAN CORPUSCULAR HGB CONC 34 g/dL (31-37) RED CELL DISTRIBUTION WIDTH 12.5 % (11.6-14.8) PLATELET COUNT 123 L K/uL (150-400) NEUTROPHIL % 58.4 % (50-75) LYMPH % 29.5 % (25-40) MONO % 11.0 % (3-14) EOSINOPHIL % 1.0 % (0-4) BASOPHIL % 0.1 % (0-2) PT with INR: (YOLETTE: 04/08/2017 20:50) ( [facility] [place] 04/08/2017 21:27) Final results Test Result Flag Units (Reference) INR 1.0 (0.8-1.2) Low Intensity Therapy: INR 1.5-2.0 PT range 18.5-23.1Mod.Intensity Therapy: INR 2.0-3.0 PT range 23.1-31.5High Intensity Therapy: INR 2.5-3.5 PT range 27.4-35.5High Intensity Therapy 2: INR 3.0-4.0 PT range 31.5-39.3 APTT 24 SECONDS (24-34) D-DIMER QUANTITATIVE < 0.27 L ug/mLFEU (0.27-0.52) The primary value of this quantitative assay relates toits negative predictive value (i.e. exclusion) of pulmonaryembolism/deep vein thrombosis/DIC.Elevated levels of d-dimer may also occur with:, age, cancer, inflammation, liver disease,post-op, infection, hematoma, coronary disease, peripheralarteriopathy, bleeding disorders and thrombolytic treatment.Results should be correlated with other clinical andradiological data.Testing Methodology: Latex Immunoassay BNP: (YOLETTE: 04/08/2017 20:50) ( [facility] 04/08/2017 21:42) Final results Test Result Flag Units (Reference) B-TYPE NATRIURETIC PEPTIDE 53.2 pg/ml (5-100) CMP: (YOLETTE: 04/08/2017 20:50) ( [facility] [place] 04/08/2017 21:44) Final results Test Result Flag Units (Reference) GLUCOSE 118 H mg/dL (70-110) BUN 17 mg/dL (7-18) CREATININE 1.0 mg/dL (0.6-1.3) Estimated GFR 57.76 mL/min Estimated GFR- >60 mL/min Note: Persistent reduction over 3 months in eGFR<60 mL/min/1.73 m2 defines CKD. Patients with eGFR values>=60 mL/min/1.73 m2 may also have CKD if evidence ofpersistent proteinuria. Additional information may be foundat www.kidney.org. SODIUM 140 mmol/L (136-145) POTASSIUM 3.7 mmol/L (3.5-5.1) CHLORIDE 104 mmol/L (98-107) CARBON DIOXIDE 28 mmol/L (21-32) CALCIUM 8.7 mg/dL (8.5-10.1) TOTAL PROTEIN 7.2 g/dL (6.4-8.2) ALBUMIN 3.6 g/dL (3.3-5.0) BILIRUBIN, TOTAL 0.6 mg/dL (0.0-1.0) ALKALINE PHOSPHATASE 82 U/L (46-116) AST (SGOT) 63 H U/L (15-37) ALT (SGPT) 109 H U/L (12-78) LIPASE 232 U/L (73-393) AMYLASE 48 U/L (25-115) CPK 274 H U/L (24-260) TROPONIN I <0.05 ng/mL (0.00-1.5) TROPONIN REFERENCE RANGE:<0.1 NEGATIVE0.1-1.5 INDETERMINANT>1.5 POSITIVE CK-MB 4.3 H ng/mL (0.5-3.2) %CKMB 1.6 % (0.0-4.0) . PROGRESS AND PROCEDURES Course of Care: 21:14 04/08/17. Case was discussed with Dr. Prado at change of shift. Reviewed the patient's history and physical examination findings and results for EKG and chest x-ray. He will follow up on the results of her labs and will arrange an appropriate disposition for her. Additionally, results of her stress test from April 2016 at [facility] reviewed by me and him and echocardiogram as well. - MW Reviewed records: Stress test 05/19/16: abnl but low risk graded stress w/ brief episode of A fib RVR. No evidence of ischemia or prior MINl wall motion and LV fxn. Echo 05/19/16: Mild LV hypertrophy. EF 70-75%. Critical care performed (35 minutes). Time is exclusive of separately billable procedures. Time includes: direct patient care, patient reassessment, interpretation of data (laboratory data, pulse oximetry, chest xrays and prior electrocardiograms) and medical consultation. The patient required critical care due to the acute impairment of vital organ systems (cardiovascular) and a high probability of imminent deterioration. Multiple urgent interventions were required to prevent sudden deterioration. Consult obtained from cardiology. call returned 22:40 Dr. Soria at [facility]. Concerned for ACS, requested Heparin Bolus and gtt and statin and ASA if not already done(325 given by EMS) and to transfer the pt. Patient/family counseled. Old medical records reviewed. Disposition: Transferred to [facility]. Condition: stable. CLINICAL IMPRESSION Acute coronary syndrome: stable angina .12 lead EKG performed. No STEMI (ST Elevation Myocardial Infarction). INSTRUCTIONS Follow-up: Blood pressure screening was not performed during this visit because the patient has an active diagnosis of hypertension. (Electronically signed by Paco Prado Dr. 04/09/2017 5:36)
--- NOTE | 2017-04-08 22:57 | ED ORDER SUMMARY ---
..... Patient: RADHA FERNANDEZ OrderSheet [facility] VisitID: [id number] [address] [place] [address] 71y, F Registration Date/Time: 04/08/2017 ORDER SHEET Weight: 100.2 kg (stated) Allergies: Codeine, Septra GENERAL ORDERS: Chest 1V Urgent (20:04 04/08/2017 Shira JACOBSON) (20:15 [facility]) Cocktail Waitress (Continuous) (20:04/08/2017 Shira JACOBSON) (20:10 [facility]) CBC w Diff Urgent (20:04/08/2017 Shira JACOBSON) (Ack 20:27 Rai) (20:52 [facility]) CMP Urgent (20:04/08/2017 Shira JACOBSON) (Ack 20:27 Rai) (20:52 [facility]) UA-Culture if indicated Urgent (20:04/08/2017 Shira JACOBSON) (Ack 20:27 Rai) (21:16 KWilliams R.N.) PT with INR Urgent (20:04/08/2017 Shira JACOBSON) (Ack 20:27 Rai) (20:51 [facility]) PTT Urgent (20:04/08/2017 Shira JACOBSON) (Ack 20:27 Rai) (20:51 [facility]) D-Dimer Urgent (20:04/08/2017 Shira JACOBSON) (Ack 20:27 aRi) (20:51 [facility]) Amylase Urgent (20:04/08/2017 Shira JACOBSON) (Ack 20:27 Rai) (20:51 [facility]) Lipase Urgent (20:04/08/2017 Shira JACOBSON) (Ack 20:27 Rai) (20:51 [facility]) CPK Urgent (20:04/08/2017 Shira JACOBSON) (Ack 20:27 Rai) (20:51 [facility]) Troponin-I Urgent (20:04/08/2017 Shira JACOBSON) (Ack 20:27 Rai) [facility] BNP Urgent (20:05 04/08/2017 Shira JACOBSON) (Ack 20:27 Rai) (20:51 [facility] Oxygen (2 L/min) (NC) (20:05 04/08/2017 Shira JACOBSON) (20:10 [facility] Pulse oximeter (20:05 04/08/2017 Shira JACOBSON) (20:10 [facility] EKG - ER Stat (20:05 04/08/2017 Shira JACOBSON) (20:10 [facility] MEDICATION ORDERS: Aspirin PO 325 mg (NOW) (20:05 04/08/2017 Shira JACOBSON) (Cancelled: Duplicate Order- given by EMS20:18 Chance R.N.) Atorvastatin PO 10 mg (NOW) (22:47 04/08/2017 Chadwcik Barrow) (Ack 22:50 Theresa R.N.) (23:29 Theresa R.N.) IV FLUIDS: IV Saline Lock (20:05 04/08/2017 Shira JACOBSON) (20:18 Chance R.N.) Heparin IV : initial bolus 4000, then 12 units/kg/hr for X1 (HIGH ALERT MEDICATION, NOW) (22:48 04/08/2017 Chadwick Barrow) (Ack 22:50 Theresa R.N.) (23:05 Theresa R.N.) Morphine IV 4 mg (HIGH ALERT MEDICATION, NOW) (22:58 04/08/2017 Chadwick Barrow) (23:06 Clement R.N.) ORDER SHEET NOTES: [Electronically signed by Jeaneth Multani R.N. (00:17 04/09/2017)] [Electronically signed by Paco Prado Dr. (05:36 04/09/2017)] [Electronically locked/signed by Jeaneth Multani R.N. (00:17 04/09/2017)]
--- NOTE | 2017-04-09 05:36 | ED DISCHARGE INSTRUCTIONS ---
Patient: RADHA FERNANDEZ General Instructions [facility] VisitID: [id number] [address] [place] [address] 71y, F Registration Date/Time: 04/08/2017 Acute coronary syndrome: stable angina .12 lead EKG performed. No STEMI (ST Elevation Myocardial Infarction). INSTRUCTIONS Follow-up: Blood pressure screening was not performed during this visit because the patient has an active diagnosis of hypertension. (Electronically signed by Paco Prado Dr. 04/09/2017 5:36)
--- NOTE | 2017-04-09 05:36 | ED MAR SUMMARY ---
..... Medication Administration Record [facility] [address] [place] [address] Patient: RADHA FERNANDEZ Visit ID: [id number] 71y, F Weight: 100.2 kg Height/Length: 63 in BMI: 39.1 ALLERGIES: Codeine, Septra Given 22:55 04/08/2017 Jeaneth Multani R.N. Medication Administered: HEPARIN [IVP], Dose: 4000 unit IVP over 1 minute(s), Site: #1 left forearm. Medication Ordered: Heparin IV : initial bolus 4000, then 12 units/kg/hr for X1 (HIGH ALERT MEDICATION, NOW). Given 23:01 04/08/2017 Cecilia Barrios R.N. Medication Administered: MORPHINE [IVP], Dose: 4 mg IVP over 2 minute(s), Site: #1 left forearm. Medication Ordered: Morphine IV 4 mg (HIGH ALERT MEDICATION, NOW). Given 23:22 04/08/2017 Jeaneth Multani RTerrence Medication Administered: ATORVASTATIN [PO], Dose: 10 mg Tablets PO. Medication Ordered: Atorvastatin PO 10 mg (NOW).
--- NOTE | 2017-04-09 05:36 | ED MAR SUMMARY ---
..... Medication Administration Record [facility] [address] [place] [address] Patient: RADHA FERNANDEZ Visit ID: [id number] 71y, F Weight: 100.2 kg Height/Length: 63 in BMI: 39.1 ALLERGIES: Codeine, Septra Given 22:55 04/08/2017 Jeaneth Multani R.N. Medication Administered: HEPARIN [IVP], Dose: 4000 unit IVP over 1 minute(s), Site: #1 left forearm. Medication Ordered: Heparin IV : initial bolus 4000, then 12 units/kg/hr for X1 (HIGH ALERT MEDICATION, NOW). Given 23:01 04/08/2017 Cecilia Barrios R.N. Medication Administered: MORPHINE [IVP], Dose: 4 mg IVP over 2 minute(s), Site: #1 left forearm. Medication Ordered: Morphine IV 4 mg (HIGH ALERT MEDICATION, NOW). Given 23:22 04/08/2017 Jeaneth Multani RTerrence Medication Administered: ATORVASTATIN [PO], Dose: 10 mg Tablets PO. Medication Ordered: Atorvastatin PO 10 mg (NOW).
--- NOTE | 2017-04-09 05:36 | ED MED RECONCILIATION SUMMARY ---
Patient: RADHA FERNANDEZ Medication Reconciliation Report [facility] VisitID: [id number] [address] [place] [address] 71y, F Registration Date/Time: 04/08/2017 Weight: 100.2 kg Height/Length: 63 in. BMI: 39.1 ALLERGIES: Codeine, Septra The patient's Home Medications are listed below: THE FOLLOWING MEDICATIONS NEED TO BE RECONCILED: Aspirin Oral (81 mg) 1 tablet, daily Cranberry Oral Cyclobenzaprine HCl Oral (5 mg) 1 tablet, 3x a day Dicyclomine HCl Oral (10 mg) 2 capsules, 2x a day DULoxetine HCl Oral (30 mg) 3 capsules, daily Flonase Nasal (50 mcg/act), 2x a day Hyzaar Oral (50-12.5 mg) 1 tablet, daily Ibuprofen Oral (800 mg) 1 tablet, 3x a day Ketoconazole External (2 %), daily Levothyroxine Sodium Oral (25 mcg) 1 tablet, daily Lidocaine External 3% lotion Loratadine Oral (10 mg), daily Magnesium Chloride Oral 64mg, daily Metoprolol Tartrate Oral (50 mg) 1 tablet, 1.5 tablets q morning and 1 tablet q PM Nitroglycerin Sublingual (0.4 mg) Nystatin External (799578 unit/gm) OxyCONTIN Oral (15 mg), 2x a day Polyethylene Glycol 3350 Oral, BID TraZODone HCl Oral (50 mg) 2 tablets, at bedtime Ventolin HFA Inhalation 2 puffs, 4x a day The source(s) of the original Home Medication information: Not obtained. The following Medications were given to the patient in the Emergency Department: Heparin [IVP] IVP 4000 unit, administered: 04/08/2017 10:55:00 PM Morphine [IVP] IVP 4 mg, administered: 04/08/2017 11:01:00 PM Atorvastatin [PO] PO 10 mg, administered: 04/08/2017 11:22:00 PM The following Medications were prescribed to the patient: None.
--- NOTE | 2017-04-09 05:36 | ED DISCHARGE INSTRUCTIONS ---
Patient: RADHA FERNANDEZ General Instructions [facility] VisitID: [id number] [address] [place] [address] 71y, F Registration Date/Time: 04/08/2017 Acute coronary syndrome: stable angina .12 lead EKG performed. No STEMI (ST Elevation Myocardial Infarction). INSTRUCTIONS Follow-up: Blood pressure screening was not performed during this visit because the patient has an active diagnosis of hypertension. (Electronically signed by Paco Prado Dr. 04/09/2017 5:36)
--- NOTE | 2017-04-09 05:36 | ED MED RECONCILIATION SUMMARY ---
Patient: RADHA FERNANDEZ Medication Reconciliation Report [facility] VisitID: [id number] [address] [place] [address] 71y, F Registration Date/Time: 04/08/2017 Weight: 100.2 kg Height/Length: 63 in. BMI: 39.1 ALLERGIES: Codeine, Septra The patient's Home Medications are listed below: THE FOLLOWING MEDICATIONS NEED TO BE RECONCILED: Aspirin Oral (81 mg) 1 tablet, daily Cranberry Oral Cyclobenzaprine HCl Oral (5 mg) 1 tablet, 3x a day Dicyclomine HCl Oral (10 mg) 2 capsules, 2x a day DULoxetine HCl Oral (30 mg) 3 capsules, daily Flonase Nasal (50 mcg/act), 2x a day Hyzaar Oral (50-12.5 mg) 1 tablet, daily Ibuprofen Oral (800 mg) 1 tablet, 3x a day Ketoconazole External (2 %), daily Levothyroxine Sodium Oral (25 mcg) 1 tablet, daily Lidocaine External 3% lotion Loratadine Oral (10 mg), daily Magnesium Chloride Oral 64mg, daily Metoprolol Tartrate Oral (50 mg) 1 tablet, 1.5 tablets q morning and 1 tablet q PM Nitroglycerin Sublingual (0.4 mg) Nystatin External (060695 unit/gm) OxyCONTIN Oral (15 mg), 2x a day Polyethylene Glycol 3350 Oral, BID TraZODone HCl Oral (50 mg) 2 tablets, at bedtime Ventolin HFA Inhalation 2 puffs, 4x a day The source(s) of the original Home Medication information: Not obtained. The following Medications were given to the patient in the Emergency Department: Heparin [IVP] IVP 4000 unit, administered: 04/08/2017 10:55:00 PM Morphine [IVP] IVP 4 mg, administered: 04/08/2017 11:01:00 PM Atorvastatin [PO] PO 10 mg, administered: 04/08/2017 11:22:00 PM The following Medications were prescribed to the patient: None.
== END 2017-04-09 00:10 | disposition short-term general hospital (02) ==
LOC: ED SRH 19:54
DX: I24.9 Acute ischemic heart disease, unspecified (principal); I20.8 Other forms of angina pectoris; R06.00 Dyspnea, unspecified; I10 Essential (primary) hypertension; K21.9 Gastro-esophageal reflux disease without esophagitis; I48.91 Unspecified atrial fibrillation; Z79.82 Long term (current) use of aspirin; Z79.84 Long term (current) use of oral hypoglycemic drugs; Z79.899 Other long term (current) drug therapy; Z88.5 Allergy status to narcotic agent
CPT/HCPCS: 90004; 90100; 90616; 90617; 91320; 91556; 92235; 92530; 92610; 94001; 94060; 95059